=== PATIENT | male | born 1980 | race Caucasian/White ===

== ENCOUNTER 2016-04-20 17:34 | Emergency (ER) | payer OTHER ==
--- NOTE | 2016-04-20 19:03 | ED CLINICAL REPORT ---
Clinical Report - Physicians/Mid Levels [facility] [address] [place] [address] 04/20/2016 17:35 Patient: HANY MAURER Time Seen: 1814Apr 20 2016. Arrived- By private vehicle. Historian- patient. HISTORY OF PRESENT ILLNESS Chief Complaint: BACK PAIN. Onset was just prior to arrival and it is still present. It is described as being in the area of the lower lumbar spine. The quality is noted to be "pain" and similar to prior episodes. Additional history - Patient reports worsening of his low back pain, the same. He has had in the past, no radiation currently to his lower extremity. No saddle anesthesia, urinary incontinence. No new trauma. No headache or neck pain. No fevers. Denies IV drug abuse. Patient denies an injury. REVIEW OF SYSTEMS No difficulty with urination, hematuria, nausea or diarrhea. All systems otherwise negative, except as recorded above. PAST HISTORY Problems: Back Pain. Laceration. Last Tetanus. Tetanus Status. Immunizations. Medications: Oxycodone-Acetaminophen Oral 10/325 mg (ran out 2 months ago, Keyshawn has not refilled). Hydrocodone-Acetaminophen Oral (Dr. Mahajan). ALPRAZolam Oral 0.5 mg, as needed. Allergies: None. SOCIAL HISTORY Not an IV drug user. ADDITIONAL NOTES The nursing notes have been reviewed. PHYSICAL EXAM Vital Signs: 04/20/2016 18:03 BP: 131/74. HR: 80. RR: 18. O2 saturation: 100%. Temp: 98.3 F. Appearance: Alert. No apparent distress. Does not appear to be anxious. ENT: Ears normal. Neck: Normal inspection. Neck nontender. CVS: Heart sounds normal. Pulses normal. Respiratory: No respiratory distress. Breath sounds normal. Abdomen: No visible injury. Soft. Bowel sounds normal. Back: Mild vertebral point tenderness over the mid and lower lumbar spine. Soft tissue tenderness. Skin: Skin warm. Normal skin color. Neuro: Oriented X 3. Mood/affect normal. No motor deficit. PROGRESS AND PROCEDURES Course of Care: Patient with recent MRI, with bulging disc, has spine surgery appointment next week, as well as follow up with his PCP, has been seeinga doctor in the office as his PCP is Frida Chavez back surgery. Patient was reduced to Vicodin,has breakthrough pain, inquiring about Percocet, discussed pain policy as well as pain control and need to have only one physician prescribing his medications. He understands this. There are no risks for spinal epidural abscess or hematoma as patient is without any risk factors such as IVDA or evidence of active infection, no midline tenderness to percussion. Hence I do not feel emergent imaging with an MRI is indicated. However I did discuss with the patient that if these symptoms develop, or if the pain does not resolve an MRI may need to be done outpatient, or in the ED if symptoms worsen acutely or new onset of the above mentioned symptoms develop. Patient is stable. Patient/family counseled. Disposition: Discharged. CLINICAL IMPRESSION Chronic lumbar back pain. INSTRUCTIONS Apply ice. Prescription Medications: Soma 350 mg: take 1 orally every 6 hours for 3 days as needed for muscle spasm. Dispense fifteen (15). No refill. Substitution is permissible. oxycodone 5 mg po prn breakthrough pain, # 7 (seven). Follow-up: Follow up with your doctor in one week. (Electronically signed by Amber Wallace P.A.-C 04/20/2016 19:31)
--- NOTE | 2016-04-20 19:04 | ED ORDER SUMMARY ---
..... Patient: HANY MAURER OrderSheet [facility] VisitID: [id number] [address] [place] [address] 35y, M Registration Date/Time: 04/20/2016 ORDER SHEET Weight: 81.6 kg (estimated) Allergies: None GENERAL ORDERS: MEDICATION ORDERS: - (oxycodone 5 mg) (18:18 04/20/2016 Natasha Connelly) (18:42 Eddie Collins) IV FLUIDS: ORDER SHEET NOTES: [Electronically signed by Keshia Burnette R.N. (19:04/20/2016)] [Electronically signed by Amber Wallace P.A.-C (:04/20/2016)] [Electronically locked/signed by Keshia Burnette R.N. (19:04/20/2016)]
--- NOTE | 2016-04-20 19:04 | ED NURSING NOTES ---
Clinical Report - Nurses [facility] [address] [place] [address] 04/20/2016 17:35 Patient: HANY MAURER TRIAGE Triage time 18:03 Apr 20 2016. Acuity: LEVEL 4. Chief Complaint: BACK PAIN. Alert. No acute distress. IRMA COMA SCORE: Irma Coma Scale: 15- eyes open spontaneously (4); best verbal response- oriented x 4 (5); best motor response- obeys commands (6). --18:07 Keshia Burnette R.N. 18:03 04/20/16. BP: 131/74. HR: 80. RR: 18. O2 saturation: 100%. Temp: 98.3 F. Pain level now 8/10. --18:07 Keshia Burnette R.N. Weight: 81.6 kg estimated. Height/Length: 72 inches Estimated. BMI: 24.4. --18:02 Keshia Burnette R.N. Medications ALPRAZolam Oral 0.5 mg, as needed. --18:05 Keshia Burnette R.N. Hydrocodone-Acetaminophen Oral (Dr. Mahajan). --18:05 Keshia Burnette R.N. Oxycodone-Acetaminophen Oral 10/325 mg (ran out 2 months ago, Keyshawn has not refilled). --18:06 Keshia Burnette R.N. Medication/allergy information source: the patient. --18:07 Keshia Burnette R.N. Allergies None. --18:05 Keshia Burnette R.N. History Arrived by private vehicle. ( Chronic Back Pain, MRI's to confirm Low Lumbar pain, Degenerative Disc Disease. Seeing his PCP. Scheduled with Surgeon to some options or steroids.). This is a recurrent problem. Treatment DISPLAY TRIMMER: None. NUTRITIONAL RISK ASSESSMENT: The nutritional risk assessment revealed no deficiencies. FUNCTIONAL ASSESSMENT: Functional assessment: no impairments noted. LEARNING NEEDS ASSESSMENT: The learning needs assessment revealed no barriers. SKIN INTEGRITY ASSESSMENT: Skin integrity risk assessment completed. No skin integrity risk identified. --18:07 Keshia Burnette R.N. PROBLEMS: Back Pain. Laceration. Last Tetanus. Tetanus Status. Immunizations. --18:07 Keshia Burnette R.N. Interventions ID band on patient. To room. --18:07 Keshia Burnette R.N. PHYSICAL ASSESSMENT Ambulatory to room. GENERAL / NEURO / PSYCH: Oriented X 4. Appears in no acute distress. RESPIRATORY: Respirations not labored. CVS: Capillary refill less than 2 seconds. --19:29 Keshia Burnette R.N. NURSING PROGRESS NOTES Patient ready for evaluation- ED physician notified. --18:08 Keshia Burnette R.N. 18:42 04/20/2016 Oxycodone PO 5 mg given. --18:42 Keshia Burnette R.N. Patient waiting for evaluation and disposition. --19:00 Keshia Burnette R.N. ( pt states he called for a ride, his father is coming to pick him up he states.). --19:29 Keshia Burnette R.N. DISPOSITION / DISCHARGE Condition at departure: stable. No learning barriers present. Reviewed medication(s). Written instructions provided in Vietnamese. The patient was discharged by the physician nurseryman assistant. He was discharged home and accompanied by parent. He left the Emergency Department ambulatory and via private vehicle. Parent driving. --19:30 Keshia Burnette R.N. Locked/Released at 04/20/2016 19:31 by Keshia Burnette R.N.
--- NOTE | 2016-04-20 19:04 | ED ORDER SUMMARY ---
..... Patient: HANY MAURER OrderSheet [facility] VisitID: [id number] [address] [place] [address] 35y, M Registration Date/Time: 04/20/2016 ORDER SHEET Weight: 81.6 kg (estimated) Allergies: None GENERAL ORDERS: MEDICATION ORDERS: - (oxycodone 5 mg) (18:18 04/20/2016 Natasha Connelly) (18:42 Eddie Collins) IV FLUIDS: ORDER SHEET NOTES: [Electronically signed by Keshia Burnette R.N. (19:04/20/2016)] [Electronically signed by Amber Wallace P.A.-C (:04/20/2016)] [Electronically locked/signed by Keshia Burnette R.N. (19:04/20/2016)]
--- NOTE | 2016-04-20 19:04 | ED NURSING NOTES ---
Clinical Report - Nurses [facility] [address] [place] [address] 04/20/2016 17:35 Patient: HANY MAURER TRIAGE Triage time 18:03 Apr 20 2016. Acuity: LEVEL 4. Chief Complaint: BACK PAIN. Alert. No acute distress. IRMA COMA SCORE: Irma Coma Scale: 15- eyes open spontaneously (4); best verbal response- oriented x 4 (5); best motor response- obeys commands (6). --18:07 Keshia Burnette R.N. 18:03 04/20/16. BP: 131/74. HR: 80. RR: 18. O2 saturation: 100%. Temp: 98.3 F. Pain level now 8/10. --18:07 Keshia Burnette R.N. Weight: 81.6 kg estimated. Height/Length: 72 inches Estimated. BMI: 24.4. --18:02 Keshia Burnette R.N. Medications ALPRAZolam Oral 0.5 mg, as needed. --18:05 Keshia Burnette R.N. Hydrocodone-Acetaminophen Oral (Dr. Mahajan). --18:05 Keshia Burnette R.N. Oxycodone-Acetaminophen Oral 10/325 mg (ran out 2 months ago, Keyshawn has not refilled). --18:06 Keshia Burnette R.N. Medication/allergy information source: the patient. --18:07 Keshia Burnette R.N. Allergies None. --18:05 Keshia Burnette R.N. History Arrived by private vehicle. ( Chronic Back Pain, MRI's to confirm Low Lumbar pain, Degenerative Disc Disease. Seeing his PCP. Scheduled with Surgeon to some options or steroids.). This is a recurrent problem. Treatment RESPIRATORY CLINICIAN: None. NUTRITIONAL RISK ASSESSMENT: The nutritional risk assessment revealed no deficiencies. FUNCTIONAL ASSESSMENT: Functional assessment: no impairments noted. LEARNING NEEDS ASSESSMENT: The learning needs assessment revealed no barriers. SKIN INTEGRITY ASSESSMENT: Skin integrity risk assessment completed. No skin integrity risk identified. --18:07 Keshia Burnette R.N. PROBLEMS: Back Pain. Laceration. Last Tetanus. Tetanus Status. Immunizations. --18:07 Keshia Burnette R.N. Interventions ID band on patient. To room. --18:07 Keshia Burnette R.N. PHYSICAL ASSESSMENT Ambulatory to room. GENERAL / NEURO / PSYCH: Oriented X 4. Appears in no acute distress. RESPIRATORY: Respirations not labored. CVS: Capillary refill less than 2 seconds. --19:29 Keshia Burnette R.N. NURSING PROGRESS NOTES Patient ready for evaluation- ED physician notified. --18:08 Keshia Burnette R.N. 18:42 04/20/2016 Oxycodone PO 5 mg given. --18:42 Keshia Burnette R.N. Patient waiting for evaluation and disposition. --19:00 Keshia Burnette R.N. ( pt states he called for a ride, his father is coming to pick him up he states.). --19:29 Keshia Burnette R.N. DISPOSITION / DISCHARGE Condition at departure: stable. No learning barriers present. Reviewed medication(s). Written instructions provided in Spanish. The patient was discharged by the physician assistant executive housekeeper. He was discharged home and accompanied by parent. He left the Emergency Department ambulatory and via private vehicle. Parent driving. --19:30 Keshia Burnette R.N. Locked/Released at 04/20/2016 19:31 by Keshia Burnette R.N.
--- NOTE | 2016-04-20 19:31 | ED MAR SUMMARY ---
..... Medication Administration Record [facility] [address] [place] [address] Patient: HANY MAURER Visit ID: [id number] 35y, M Weight: 81.6 kg Height/Length: 72 in BMI: 24.4 ALLERGIES: None Given 18:42 04/20/2016 Keshia Burnette R.N. Medication Administered: OXYCODONE [PO], Dose: 5 mg PO. Medication Ordered: - (oxycodone 5 mg).
--- NOTE | 2016-04-20 19:31 | ED MED RECONCILIATION SUMMARY ---
Patient: HANY MAURER Medication Reconciliation Report [facility] VisitID: [id number] [address] [place] [address] 35y, M Registration Date/Time: 04/20/2016 Weight: 81.6 kg Height/Length: 72 in. BMI: 24.4 ALLERGIES: None The patient's Home Medications are listed below: THE FOLLOWING MEDICATIONS NEED TO BE RECONCILED: ALPRAZolam Oral 0.5 mg Hydrocodone-Acetaminophen Oral, Dr. Mahajan Oxycodone-Acetaminophen Oral 10/325 mg, ran out 2 months ago, Keyshawn has not refilled The source(s) of the original Home Medication information: patient The following Medications were given to the patient in the Emergency Department: Oxycodone [PO] PO 5 mg, administered: 04/20/2016 6:42:00 PM The following Medications were prescribed to the patient: oxycodone 5 mg po prn breakthrough pain, # 7 (seven). -- Amber Wallace PMernaANolvia Soma 350 mg: take 1 orally every 6 hours for 3 days as needed for muscle spasm. Dispense fifteen (15). No refill. Substitution is permissible. -- Amber Wallace, P.A.-C
--- NOTE | 2016-04-20 19:31 | ED MAR SUMMARY ---
..... Medication Administration Record [facility] [address] [place] [address] Patient: HANY MAURER Visit ID: [id number] 35y, M Weight: 81.6 kg Height/Length: 72 in BMI: 24.4 ALLERGIES: None Given 18:42 04/20/2016 Keshia Burnette R.N. Medication Administered: OXYCODONE [PO], Dose: 5 mg PO. Medication Ordered: - (oxycodone 5 mg).
--- NOTE | 2016-04-20 19:31 | ED DISCHARGE INSTRUCTIONS ---
Patient: HANY MAURER General Instructions [facility] VisitID: [id number] [place] [address] 35y, M Registration Date/Time: 04/20/2016 Chronic lumbar back pain. INSTRUCTIONS Apply ice. Prescription Medications: Soma 350 mg: take 1 orally every 6 hours for 3 days as needed for muscle spasm. Dispense fifteen (15). No refill. Substitution is permissible. oxycodone 5 mg po prn breakthrough pain, # 7 (seven). Follow-up: Follow up with your doctor in one week. ADDITIONAL INFORMATION Back Pain [Acute Or Chronic] Back pain is usually caused by an injury to the muscles or ligaments of the spine. Sometimes the disks that separate each bone in the spine may bulge and cause pain by pressing on a nearby nerve. Back pain may also appear after a sudden twisting/bending force (such as in a car accident), after a simple awkward movement, or lifting something heavy with poor body positioning. In either case, muscle spasm is often present and adds to the pain. Acute back pain usually gets better in one to two weeks. Back pain related to disk disease, arthritis in the spinal joints or spinal stenosis (narrowing of the spinal canal) can become chronic and last for months or years. Unless you had a physical injury (for example, a car accident or fall) X-rays are usually not ordered for the initial evaluation of back pain. If pain continues and does not respond to medical treatment, x-rays and other tests may be performed at a later time. Home Care: You may need to stay in bed the first few days. But, as soon as possible, begin sitting or walking to avoid problems with prolonged bed rest (muscle weakness, worsening back stiffness and pain, blood clots in the legs). When in bed, try to find a position of comfort. A firm mattress is best. Try lying flat on your back with pillows under your knees. You can also try lying on your side with your knees bent up towards your chest and a pillow between your knees. Avoid prolonged sitting. This puts more stress on the lower back than standing or walking. During the first two days after injury, apply an ICE PACK to the painful area for 20 minutes every 2-4 hours. This will reduce swelling and pain. HEAT (hot shower, hot bath or heating pad) works well for muscle spasm. You can start with ice, then switch to heat after two days. Some patients feel best alternating ice and heat treatments. Use the one method that feels the best to you. You may use acetaminophen (Tylenol) or ibuprofen (Motrin, Advil) to control pain, unless another pain medicine was prescribed. [NOTE: If you have chronic liver or kidney disease or ever had a stomach ulcer or GI bleeding, talk with your doctor before using these medicines.] Be aware of safe lifting methods and do not lift anything over 15 pounds until all the pain is gone. Follow Up with your doctor or this facility if your symptoms do not start to improve after one week. Physical therapy may be needed. [NOTE: If X-rays were taken, they will be reviewed by a radiologist. You will be notified of any new findings that may affect your care.] Get Prompt Medical Attention if any of the following occur: Pain becomes worse or spreads to your legs Weakness or numbness in one or both legs Loss of bowel or bladder control Numbness in the groin or genital area You have been given the following additional information: Back Pain (Acute Or Chronic) (Electronically signed by Amber Wallace P.A.-C 04/20/2016 19:31)
--- NOTE | 2016-04-20 19:31 | ED MED RECONCILIATION SUMMARY ---
Patient: HANY MAURER Medication Reconciliation Report [facility] VisitID: [id number] [address] [place] [address] 35y, M Registration Date/Time: 04/20/2016 Weight: 81.6 kg Height/Length: 72 in. BMI: 24.4 ALLERGIES: None The patient's Home Medications are listed below: THE FOLLOWING MEDICATIONS NEED TO BE RECONCILED: ALPRAZolam Oral 0.5 mg Hydrocodone-Acetaminophen Oral, Dr. Mahajan Oxycodone-Acetaminophen Oral 10/325 mg, ran out 2 months ago, Keyshawn has not refilled The source(s) of the original Home Medication information: patient The following Medications were given to the patient in the Emergency Department: Oxycodone [PO] PO 5 mg, administered: 04/20/2016 6:42:00 PM The following Medications were prescribed to the patient: oxycodone 5 mg po prn breakthrough pain, # 7 (seven). -- Amber Wallace PMernaANolvia Soma 350 mg: take 1 orally every 6 hours for 3 days as needed for muscle spasm. Dispense fifteen (15). No refill. Substitution is permissible. -- Amber Wallace, P.A.-C
== END 2016-04-20 19:30 | disposition home or self-care (01) ==
LOC: ED SRH 17:34
DX: M54.5 Low back pain (principal); G89.29 Other chronic pain